=== PATIENT | female | born 1995 | race Caucasian/White ===

== ENCOUNTER 2021-06-27 13:22 | Emergency (ER) | payer BC, OTHER ==
[~2021-06-27] VITALS: Ht 172.7 cm; Wt 104.0 kg
--- NOTE | 2021-06-27 13:49 | PHYS DOC ---
General Adult EDM: Chief Complaint: BREAST PROBLEM HPI: HPI: Patient is a 26-year-old female being seen in the ER today for bilateral breast tenderness and redness that started a week and a half ago.. She is also having fevers, chills, body aches, and frequent dysuria. Patient is and breast-feeding. Patient was seen at her primary care provider's office on and given a prescription for Dicloxacillin she took this medication for 4 days but continued to have high fevers of 102 degrees. Patient return to her primary care provider's office on Thursday and was put on Bactrim. Patient reports that she has been taking Bactrim as directed but continues to have her symptoms. Patient denies nausea, vomiting, cough, shortness of breath, chest pain, urinary frequency or urgency. She had a negative Covid test. Patient is concerned she may have rest abscess. (KANDIS DYKES APRN) Review of Systems: Review of Systems: 14 body systems of the review of systems have been reviewed. See HPI for pertinent positive and negative responses, otherwise all other systems are negative, nonpertinent or noncontributory (KANDIS DYKES APRN) Physical Exam: PE: Constitutional: Well developed, well nourished, no acute distress, non-toxic appearance. [] HENT: Normocephalic, atraumatic Eyes: PERRL, conjunctiva normal, no discharge. [] Neck: Normal range of motion, no stridor Cardiovascular: Normal peripheral perfusion Breast: Warmth and redness noted to the lower outer quadrant of the left breast, redness noted to be in the lower inner quadrant of the right breast, tenderness with palpation of breasts, several scattered areas of firmness, no skin changes Lungs & Thorax: Normal work of breathing, no tachypnea Abdomen: Bowel sounds normal, soft, no tenderness, no masses, no pulsatile masses. [] Skin: Warm, dry, no erythema, no rash. [] Back: Normal range of motion Extremities: No tenderness, no cyanosis, no clubbing, ROM intact, no edema. [] Neurologic: Alert and oriented X 3, normal motor function, normal sensory function, no focal deficits noted. [] Psychologic: Affect normal, judgement normal, mood normal. [] (KANDIS DYKES APRN) Current Patient Data: Labs: Laboratory Tests Test 06/27/21 13:57 06/27/21 14:02 White Blood Count 11.9 x10^3/uL Red Blood Count 4.12 x10^6/uL Hemoglobin 12.2 g/dL Hematocrit 37.1 % Mean Corpuscular Volume 90 fL Mean Corpuscular Hemoglobin 30 pg Mean Corpuscular Hemoglobin Concent 33 g/dL Red Cell Distribution Width 13.5 % Platelet Count 260 x10^3/uL Neutrophils (%) (Auto) 73 % Lymphocytes (%) (Auto) 17 % Monocytes (%) (Auto) 5 % Eosinophils (%) (Auto) 4 % Basophils (%) (Auto) 0 % Neutrophils # (Auto) 8.7 x10^3uL Lymphocytes # (Auto) 2.0 x10^3/uL Monocytes # (Auto) 0.6 x10^3/uL Eosinophils # (Auto) 0.5 x10^3/uL Basophils # (Auto) 0.1 x10^3/uL Segmented Neutrophils % 65 % Band Neutrophils % 1 % Lymphocytes % 22 % Monocytes % 6 % Eosinophils % 5 % Metamyelocytes % 1 % Platelet Estimate Adequate Sodium Level 139 mmol/L Potassium Level 4.3 mmol/L Chloride Level 104 mmol/L Carbon Dioxide Level 25 mmol/L Anion Gap 10 Blood Urea Nitrogen 7 mg/dL Creatinine 0.9 mg/dL Estimated GFR (Cockcroft-Gault) 76.3 Glucose Level 86 mg/dL Lactic Acid Level 0.8 mmol/L Calcium Level 8.9 mg/dL Urine Collection Type Unknown Urine Color Straw Urine Clarity Clear Urine pH 7.0 Urine Specific Reed 1.015 Urine Protein Neg Urine Glucose (UA) Neg mg/dL Urine Ketones (Stick) Neg mg/dL Urine Blood Large Urine Nitrite Neg Urine Bilirubin Neg Urine Urobilinogen Dipstick 0.2 mg/dL Urine Leukocyte Esterase Trace Urine RBC 1-2 /HPF Urine WBC 1-4 /HPF Urine Squamous Epithelial Cells Mod /LPF Urine Bacteria Few /HPF (KANDIS DYKES APRN) EKG: EKG: [] (KANDIS DYKES APRN) Radiology/Procedures: Radiology/Procedures: PROCEDURE: US BREAST BILATERAL COMPLETE US BREAST BILAT History:Reason: breast pain, redness, r/o abscess / Spl. Instructions: / History: Comparison: None Technique: Sonographic examination of the bilateral breast was performed and multiple static images were obtained. Findings: No loculated fluid collection to suggest abscess. Bilateral breast edema within the 3:00 position. Numerous dilated ducts within this region, likely related to breast-feeding. Impression: 1. Bilateral edema with dilated ducts, may represent mastitis. No loculated fluid collection to suggest abscess. Recommend follow-up as clinically warranted Electronically signed by: Melanie Mera DO (06/27/2021 3:03 PM) [id number] DICTATED AND SIGNED BY: MELANIE MERA DO DATE: 06/27/21 1457 CC: KANDIS DYKES APRN; PCP,NO ~MTH0 0 (KANDIS DYKES APRN) Heart Score: C/O Chest Pain: No Risk Factors: Risk Factors: DM, Current or recent (<one month) smoker, HTN, HLP, family history of CAD, obesity. Risk Scores: Score 0 - 3: 2.5% MACE over next 6 weeks - Discharge Home Score 4 - 6: 20.3% MACE over next 6 weeks - Admit for Clinical Observation Score 7 - 10: 72.7% MACE over next 6 weeks - Early Invasive Strategies (KANDIS DYKES APRN) Course & Med Decision Making: Course & Med Decision Making Pertinent Labs and Imaging studies reviewed. (See chart for details) [] Patient is a 26-year-old female being seen in the ER today for bilateral breast redness and tenderness with fever and flulike symptoms. Patient had 2 failed previous treatments with antibiotics. Blood work was performed in the ER along with an ultrasound of the breast. It was performed and this showed no abscess but mastitis. Patient is also noted to have leukocytosis and UTI. Patient given a dose of Zosyn in the ER and discharged home with clindamycin. Patient reports that she has headaches at home does not improve with Tylenol. Patient advised to use Tylenol or ibuprofen, 25 mg of Benadryl, Gatorade and Reglan. I discussed with patient all findings and diagnostic testing as well as the need to follow-up with PCP for further evaluation and treatment or return to the ER if any new or worsening symptoms. Strict return precautions were also discussed at length. Patient voiced understanding and agreement with the plan. Patient is hemodynamically stable at the time of disposition. (KANDIS DYKES APRN) Dragon Disclaimer: Dragon Disclaimer: This electronic medical record was generated, in whole or in part, using a voice recognition dictation system. (KANDIS DYKES APRN) Attending Co-Sign The patient was seen and interviewed as well as examined at the bedside. The chart was reviewed. The case was discussed. Agree with the plan of care. (KASSI CALL DO) Departure Departure: Impression: Primary Impression: Mastitis Additional Impression: UTI (urinary tract infection) Qualified Codes: N30.01 - Acute cystitis with hematuria Disposition: HOME / SELF CARE / HOMELESS Condition: GOOD Referrals: PCP,NO (PCP) Patient Instructions: Mastitis, Urinary Tract Infection Additional Instructions: You were seen in the ER today for bilateral breast pain, swelling, redness. An ultrasound was performed to rule out abscess and it was negative for abscess and showed mastitis. You were also noted to have a urinary tract infection. You were given a dose of IV antibiotics in the ER. You are being sent home with a prescription for clindamycin. Please take this medication as directed. You can take Tylenol for pain or fevers. For your headaches you can take Tylenol/ibuprofen, 25 mg of Benadryl with a bottle of Gatorade and you can take Reglan. Massage in your breast and using a breast pump to empty her breast after feedings may help with your symptoms. Ensure that you are drinking plenty of fluids. Please follow-up with your [facility]. If your symptoms worsen or you notice fevers that are refractory to treatment, nausea, vomiting, worsening of your pain, abdominal pain, severe back pain please return to the ER. EMERGENCY DEPARTMENT GENERAL DISCHARGE INSTRUCTIONS Thank you for coming to [facility] (ED) today and trusting us with you care. We trust that you had a positivie experience in our Emergency Department. If you wish to speak to the department management, you may call the director at [phone]. YOUR FOLLOW UP INSTRUCTIONS ARE FOLLOWS: 1. Do you have a private Doctor? If you do not have a private doctor, please ask for a resource list of physicians or clinics that may be able to assist you with follow up care. 2. The Emergency Physician has interpreted your x-rays. The X-Ray specialist will also review them. If there is a change in the findings, you will be notified in 48 hours when at all possible. 3. A lab test or culture has been done, your results will be reviewed and you will be notified if you need a change in treatment. ADDITIONAL INSTRUCTIONS AND INFORMATION: 1. Your care today has been supervised by a physician who is specially trained in emergency care. Many problems require more than one evaluation for a complete diagnosis and treatment. We recommend that you schedule your follow up appointment as recommended to ensure complete treatment of you illness or injury. If you are unable to obtain follow up care and continue to have a problem, or if your condition worsens, we recommend that you return to the ED. 2. We are not able to safely determine your condition over the phone nor are we able to give sound medical advice over the phone. For these safety reasons, if you call for medical advice we will ask you to come to the ED for further evaluation. 3. If you have any questions regarding these discharge instructions please call the ED at [phone]. SAFETY INFORMATION: In the interest of safety, wellness, and injury prevention; we encourage you to wear your sealbelt, if you smoke; quite smoking, and we encourage family to use a protective helmet for bicycling and other sporting events that present an increased risk for head injury. IF YOUR SYMPTOMS WORSEN OR NEW SYMPTOMS DEVELOP, OR YOU HAVE CONCERNS ABOUT YOUR CONDITION; OR IF YOUR CONDITION WORSENS WHILE YOU ARE WAITING FOR YOUR FOLLOW UP APPOI NTMENT; EITHER CONTACT YOUR PRIMARY CARE DOCTOR, THE PHYSICIAN WHOSE NAME AND NUMBER YOU WERE GIVEN, OR RETURN TO THE ED IMMEDIATELY. Scripts Metoclopramide Hcl (REGLAN) 10 Mg Tablet 1 TAB PO 1X PRN for HEADACHE for 14 Days, #14 TAB 0 Refills Prov: KANDIS DYKES APRN 06/27/21 Clindamycin Hcl (CLINDAMYCIN HCL) 150 Mg Capsule 450 MG PO Q8HRS for mastitis for 10 Days, #90 CAP 0 Refills Prov: KANDIS DYKES APRN 06/27/21 KANDIS DYKES APRN Jun 27, 2021 13:49 KASSI CALL DO Jun 28, 2021 18:08
[2021-06-27 14:12] LABS: BASO # 0.1 x10^3/uL (0.0-0.2); BASO % 0 % (0-3); EOS # 0.5 x10^3/uL (0.0-0.7); EOS % 4 % (0-3); HEMATOCRIT 37.1 % (36.0-47.0); HEMOGLOBIN 12.2 g/dL (12.0-15.5); LYMPH % 17 % (24-48); MEAN CORPUSCULAR HEMOGLOBIN 30 pg (25-35); MEAN CORPUSCULAR HGB CONC 33 g/dL (31-37); MEAN CORPUSCULAR VOLUME 90 fL (79-100); MONO # 0.6 x10^3/uL (0.0-1.1); MONO % 5 % (0-9); NEUT # 8.7 x10^3uL (1.8-7.7); NEUT % 73 % (31-73); PLATELET COUNT 260 x10^3/uL (140-400); RED BLOOD COUNT 4.12 x10^6/uL (3.50-5.40); RED CELL DISTRIBUTION WIDTH 13.5 % (11.5-14.5); WHITE BLOOD COUNT 11.9 x10^3/uL (4.0-11.0)
[2021-06-27 14:21] LABS: CALCIUM 8.9 mg/dL (8.5-10.1); CREATININE 0.9 mg/dL (0.6-1.0); GFR 76.3; POTASSIUM 4.3 mmol/L (3.5-5.1)
[2021-06-27 14:36] LABS: CLARITY,URINE CLEAR; COLOR,URINE STRAW; GLUCOSE,URINE NEG (NEG)
[2021-06-27 14:37] LABS: BILIRUBIN,URINE NEG (NEG); NITRITE,URINE NEG (NEG); UROBILINOGEN,URINE 0.2 mg/dL (0.2 mg/dL)
[2021-06-27 14:38] LABS: BACTERIA,URINE FEW /HPF (0-FEW); SQUAMOUS EPITHELIAL CELL,UR MOD /LPF
[2021-06-27 14:46] LABS: % BANDS 1 % (0-9); % EOS 5 % (0-5); % LYMPHS 22 % (24-48); % METAS 1 % (0-0); % MONOS 6 % (0-10); % SEGS 65 % (35-66); PLT ESTIMATE ADEQUATE (ADEQUATE)
--- NOTE | 2021-06-27 15:05 | RAD ---
US BREAST BILAT History:Reason: breast pain, redness, r/o abscess / Spl. Instructions: / History: Comparison: None Technique: Sonographic examination of the bilateral breast was performed and multiple static images were obtained. Findings: No loculated fluid collection to suggest abscess. Bilateral breast edema within the 3:00 position. Nu merous dilated ducts within this region, likely related to breast-feeding. Impression: 1. Bilateral edema with dilated ducts, may represent mastitis. No loculated fluid collection to sugg est abscess. Recommend follow-up as clinically warranted Electronically signed by: Greg Zuniga DO (06/27/2021 3:03 PM) [id number]
[2021-06-27 15:26] VITALS: BP 131/77
[2021-06-27] MEDS ORDERED: PIPERACILLIN/TAZOBACTAM 3.375 GM in IV NORMAL SALINE 50ML 50 ML IV ONE (15:30)
[2021-06-27] MEDS ORDERED: CLIN150C15 PO (15:32)
[2021-06-27] MEDS ORDERED: PIPERACILLIN/TAZOBACTAM 3.375 GM VIAL IV ONE (15:36)
[2021-06-27] MEDS ORDERED: METO10TA81 PO (15:38)
[2021-06-27] MEDS ORDERED: IV NORMAL SALINE 50ML 50 ML ONE (15:42)
== END 2021-06-27 16:14 | disposition home or self-care (01) ==
LOC: ER 13:22
DX: N61.0 Mastitis without abscess (principal); N39.0 Urinary tract infection, site not specified
CPT/HCPCS: 36415; 76641; 80048; 81001; 83605; 85007; 85025; 87086; 96365; 99284; J2543